=== PATIENT | female | born 1945 | race Caucasian/White ===

== ENCOUNTER → 2023-11-02 10:53 | Outpatient (REF) | payer OTHER, SELFPAY | LOC: HWRAD 10:53 | PROVIDERS: ATTENDING PHYSICIAN Family Medicine | DX: Z12.39 Encounter for other screening for malignant neoplasm of breast (principal); M85.88 Other specified disorders of bone density and structure, other site | CPT/HCPCS: 77063; 77067; 77080 ==

== ENCOUNTER → 2024-06-26 16:52 | Outpatient (REF) | payer OTHER, SELFPAY | LOC: RAD 16:52 | PROVIDERS: ATTENDING PHYSICIAN Family Medicine | DX: R41.89 Other symptoms and signs involving cognitive functions and awareness (principal) | CPT/HCPCS: 70450 ==